=== PATIENT | male | born 1985 | race Caucasian/White ===

== ENCOUNTER 2019-03-23 20:43 | Emergency (ER) | payer MEDICAID ==
[~2019-03-23] VITALS: Ht 180.3 cm; Wt 79.4 kg
[2019-03-23] MEDS ORDERED: TETRACAINE HCL 0.5% OPHTHALMIC DROPS 15 ML OP ONE (20:44)
[2019-03-23 20:49] VITALS: BP_SYST 142
--- NOTE | 2019-03-23 20:51 | NUR ---
Patient to ER bed 07 to gown for evaluation. Side rails up.
--- NOTE | 2019-03-23 21:04 | NUR ---
Patient complains of right eye pain for the past 5 days. Pt states he was drilling a hole on a metal sheet at home when a piece of metal flew into his right eye. Pt thought it would go away but pain is still there and "a bit of blurred vision." Pt denies N/V, fever. Minor redness to right eye. No other injuries/complaints per patient or noted.
--- NOTE | 2019-03-23 21:34 | NUR ---
ER Dr. Julien at bedside examining patient.
[2019-03-23] MEDS ORDERED: ERYTHROMYCIN 0.5% EYE OINT 3.5 GM OP ONE (22:15)
[2019-03-23 22:29] VITALS: BP_SYST 142
--- NOTE | 2019-03-23 22:29 | NUR ---
Patient given written and verbal discharge instructions and verbalizes understanding. ER MD discussed with patient the results and treatment provided. Patient in stable condition. ID arm band removed. Rx of Polytrim given. Patient educated on pain management and to follow up with PMD. Pain Scale 0. Opportunity for questions provided and answered. Medication side effect fact sheet provided.
[2019-03-23] MEDS ORDERED: ERYTHROMYCIN BASE 0.5% EYE OINT...G. ONE (22:36)
== END 2019-03-23 22:29 | disposition home or self-care (01) ==
LOC: SED 20:43
DX: T15.81XA Foreign body in other and multiple parts of external eye, right eye, initial encounter (principal); H10.9 Unspecified conjunctivitis; R03.0 Elevated blood-pressure reading, without diagnosis of hypertension; F17.200 Nicotine dependence, unspecified, uncomplicated; X58.XXXA Exposure to other specified factors, initial encounter; Y93.89 Activity, other specified; Y92.89 Other specified places as the place of occurrence of the external cause; Y99.8 Other external cause status
CPT/HCPCS: 99283